=== PATIENT | male | born 1970 | race Caucasian/White ===

== ENCOUNTER 2018-12-20 06:41 | Emergency (ER) | payer SELFPAY ==
[2018-12-20] MEDS ORDERED: Aspirin 81 MG Tab.Chew PO ONE (06:49)
[2018-12-20] MEDS ORDERED: Morphine 2 MG/ML Syringe IVPUSH ONE ×2 (06:57→08:25)
[2018-12-20] MEDS ORDERED: Ondansetron 4 MG/2 ML SDV IVPUSH ONE (06:57)
[2018-12-20] MEDS ORDERED: Nitroglycerin 2% Oint 1 GM UD Packet TOP ONE (06:58)
[2018-12-20] MEDS: Nitroglycerin 0.4 MG Tab.SL SL PRN ×3 (07:04→07:15)
[2018-12-20 07:25] LABS: CHLORIDE,CL 104 mmol/L (98-107); SODIUM,NA 141 mmol/L (136-148)
--- NOTE | 2018-12-20 07:41 | CR ---
HISTORY: Chest pain. TECHNIQUE: One view of the chest. COMPARISON: No prior. FINDINGS: Cardiac size and pulmonary vasculature are within normal limits. There is no consolidation or pulmonary edema. Chronic chest wall deformity bilaterally. No pneumothorax or pleural effusion. IMPRESSION: 1. No acute lung infiltrate or pulmonary edema. 2. Chronic chest wall deformity bilaterally. Dictated by Fidel Tinsley MD @ 12/20/2018 7:39:21 AM Dictated by: Fidel Tinsley MD @ 12/20/2018 07:39:27 (Electronically Signed)
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
== END 2018-12-20 09:00 ==
LOC: MW.ED 06:41
DX: I24.9 Acute ischemic heart disease, unspecified (principal); I10 Essential (primary) hypertension; I25.2 Old myocardial infarction; F17.210 Nicotine dependence, cigarettes, uncomplicated; E10.9 Type 1 diabetes mellitus without complications; E78.00 Pure hypercholesterolemia, unspecified; Z95.5 Presence of coronary angioplasty implant and graft
CPT/HCPCS: 71045; 80053; 84484; 85025; 85610; 93005; 96374; 96375; 96376; 99285; A9270; J2270; J2405; 99284